=== PATIENT | female | born 1950 | race Caucasian/White ===

== ENCOUNTER 2016-08-27 08:22 | Day surgery (SDC) | payer OTHER ==
--- NOTE | ~2016-08-27 | EGD ---
EGD REPORT [facility] [address] [place]. [address] NAME: STEVEN MEDINA : [birth year] STATUS : REG [facility]#: [id number] AGE: 65 ADM/REG DATE : 08/27/16 MR#: [id number] REPORT SERV DATE: 08/27/16 DICTATED BY: TOBY HUDSON DATE: 08/27/16 REPORT STATUS : Draft [facility] DATE: 08/27/16 [facility] Patient Name: Steven Medina Date of : 1950 Attending MD: TOBY HUDSON MD Procedure Date No Time: 08/27/2016 Procedure: Colonoscopy Indications: Heme positive stool; FHx negative. Patient Profile: Informed consent was obtained from the patient by me prior to the procedure. Risks, benefits, and alternatives were discussed including the risk of bleeding, perforation, infection, reaction to medicine, missed lesion, and cardiopulmonary complications. Referring MD: Esperanza George Medicines: Monitored Anesthesia Care Complications: No immediate complications. Procedure: Pre-Anesthesia Assessment: - ASA Grade Assessment: III - A patient with severe systemic disease. After I obtained informed consent, the scope was passed under direct vision. Throughout the procedure, the patient's blood pressure, pulse, and oxygen saturations were monitored continuously. The PCF [id number] was introduced through the anus and advanced to the cecum, identified by appendiceal orifice and ileocecal valve. The colonoscope was slowly withdrawn with careful examination all mucosal surfaces including specific attention around flexures and tip deflection behind folds; retroflexion performed in rectum. The colonoscopy was performed without difficulty. The patient tolerated the procedure well. The quality of the bowel preparation was adequate. The ileocecal valve, appendiceal orifice and rectum were photographed. Findings: The terminal ileum appeared normal. The colon (entire examined portion) appeared normal. Biopsies were taken with a cold forceps for histology from R and L colon. A sessile polyp was found at the hepatic flexure. The polyp was 7 mm in size. The polyp was removed with a cold snare. Resection and retrieval were complete. A flat polyp was found in the ascending colon. The polyp was 12 mm in size. The polyp was removed with a cold snare in multiple pieces. Resection and retrieval were complete. Area was successfully injected with Juanita ink for tattooing submucosal and adjacent. EGD REPORT [address] [place]. [address] NAME: STEVEN MEDINA : [birth year] STATUS : REG [facility]#: [id number] AGE: 65 ADM/REG DATE : 08/27/16 MR#: [id number] REPORT SERV DATE: 08/27/16 DICTATED BY: TOBY HUDSON DATE: 08/27/16 REPORT STATUS : Draft TRANSCRIBED BY: [facility] [facility] DATE: 08/27/16 Impression: - The examined portion of the ileum was normal. - The entire examined colon is normal. Biopsied. - One 7 mm polyp at the hepatic flexure. Resected and retrieved. - One 12 mm polyp in the ascending colon. Resected and retrieved. Injected. Recommendation: - Patient has a contact number available for emergencies. The signs and symptoms of potential delayed complications were discussed with the patient. Return to normal activities tomorrow. Written discharge instructions were provided to the patient. - Regular diet. - Continue present medications. - Await pathology results. - Repeat colonoscopy for surveillance based on pathology results. - Advised restart coumadin tonight and she will f/u INR check PCP 3-5 days. Procedure Code(s): --- Professional --- 05211, Colonoscopy, flexible, proximal to splenic flexure; with removal of tumor(s), polyp(s), or other lesion(s) by snare technique 14817, 59, Colonoscopy, flexible, proximal to splenic flexure; with biopsy, single or multiple 18823, Colonoscopy, flexible, proximal to splenic flexure; with directed submucosal injection(s), any substance Diagnosis Code(s): --- Professional --- D12.2, Benign neoplasm of ascending colon D12.3, Benign neoplasm of transverse colon R19.5, Other fecal abnormalities CPT copyright 2013 [employer]. All rights reserved. The codes documented in this report are preliminary and upon aco coordinator review may be revised to meet current compliance requirements. TOBY HUDSON MD 08/27/2016 10:37 AM This report has been signed electronically. Number of Addenda: 0 EGD REPORT [facility] [address] [address] NAME: STEVEN MEDINA : [birth year] STATUS : [place] [facility]#: [id number] AGE: 65 ADM/REG DATE : 08/27/16 MR#: [id number] REPORT SERV DATE: 08/27/16 DICTATED BY: TOBY HUDSON DATE: 08/27/16 REPORT STATUS : Draft TRANSCRIBED BY: [employer] DATE: 08/27/16 Note Initiated On: 08/27/2016 9:53 AM Scope Withdrawal Time 0 hours 15 minutes 45 seconds [address] [address]
[~2016-08-27 08:22] MED LIST: ADVIL PO; ALEVE220 MG PO; AMIT25 PO; ASABAYER PO; BUSPAR15 M1 PO; BUSPIRONE7.5 MG PO; C1 PO; CARDCD180 PO; CELEXA20 PO; CORDARONE PO; COREG6 PO; CORICIDIN HBP PO; CYMBALTA30 PO; CYMBALTA60 PO; DITRO5 PO; ELIQUIS 5 MG TAB5 MG PO; GLUCOPHAGE1000 MG PO; HYZAAR 100/25 T1 TAB PO; INSNOV7030 SC; LANTUS SC; NEUR300 PO; NEUR600 PO; NORV10 PO; NOVOLOGMIX SC; NOVOPENMIX SC; PRILO PO; SEROQUEL50 MG PO; TRAZ100 PO; ULTRAM50 PO; ZESTORETIC1 TA1 PO
[2016-08-27 08:50] LABS: INTERNATIONAL NORMAL RATI 1.1 UNITS (-)
== END 2016-08-27 23:59 | disposition home or self-care (01) ==
LOC: DMU 08:22
PROVIDERS: Anesthesiology; Internal Medicine Gastroenterology
PROC: 0DBL8ZX Excision of Transverse Colon, Via Natural or Artificial Opening Endoscopic, Diagnostic (ICD-10-PCS; 2016-08-27)
PROC: 3E0H8GC Introduction of Other Therapeutic Substance into Lower GI, Via Natural or Artificial Opening Endoscopic (ICD-10-PCS; principal; 2016-08-27 09:30)
PROC: 0DBK8ZX Excision of Ascending Colon, Via Natural or Artificial Opening Endoscopic, Diagnostic (ICD-10-PCS; 2016-08-27 09:30)
PROC: 0DBE8ZX Excision of Large Intestine, Via Natural or Artificial Opening Endoscopic, Diagnostic (ICD-10-PCS; 2016-08-27 09:30)
DX: D12.2 Benign neoplasm of ascending colon (principal); D12.3 Benign neoplasm of transverse colon; I25.10 Atherosclerotic heart disease of native coronary artery without angina pectoris; I10 Essential (primary) hypertension; I48.91 Unspecified atrial fibrillation; E11.9 Type 2 diabetes mellitus without complications; M79.7 Fibromyalgia; Z95.5 Presence of coronary angioplasty implant and graft; Z88.0 Allergy status to penicillin; Z98.51 Tubal ligation status; Z98.42 Cataract extraction status, left eye; Z98.890 Other specified postprocedural states
CPT/HCPCS: 82962; 85610; 88305